=== PATIENT | female | born 1970 | race Caucasian/White ===

== ENCOUNTER 2023-03-22 14:28 | Emergency (ER) | payer BC, SELFPAY ==
[2023-03-22 14:32] VITALS: BP 171/76; PULSE 63; RESP 16; TEMP 36.4; O2SAT 98; BMI 39.2
--- NOTE | 2023-03-22 14:47 | ED.EXTPRO1 ---
Documented by User: BRITTNI Gonzales 03/22/23 14:53 HPI - Extremity Problem General Chief complaint: Extremity Problem, Nontraumatic Stated complaint: SHOULDER PAIN R SIDE Time Seen by Provider: 03/22/23 14:46 Source: patient Mode of arrival: walk-in Limitations: no limitations History of Present Illness HPI Narrative: 52-year-old female presents with right shoulder pain for the past week. Denies injury. She took ibuprofen this morning. Hurts to move around shoulder. Denies swelling, temp or sensation changes Related Data Previous Rx's Medication Instructions Recorded tizanidine 4 mg tablet (Zanaflex) 4 mg PO TID PRN muscle spasticity 03/22/23 5 days #15 tabs Allergies Allergy/AdvReac Type Severity Reaction Status Date / Time No Known Drug Allergies Allergy Verified 03/22/23 14:37 Review of Systems ROS Status of ROS 10 or more systems reviewed and unremarkable except as noted in history and below Exam Narrative Exam Narrative: General: A&Ox3, no distress, talking in full an complete sentences skin: warm, dry, intact head: normocephalic, atraumatic eyes: EOMI nose: nares patent neck: supple, trachea midline respiratory: non-labored extremities: FROM x 4, strength +5/5, tender to right trapezius neuro: A&Ox3 psych: appropriate mood and affect, cooperative Constitutional Vital Signs, click to edit/add: Last Vital Signs Temp 97.5 F L 03/22/23 14:32 Pulse 63 03/22/23 14:32 Resp 16 03/22/23 14:32 BP 171/76 H 03/22/23 14:32 Pulse Ox 98 03/22/23 14:32 O2 Del Method Room Air 03/22/23 14:32 Course Vital Signs Vital signs: Vital Signs Temperature 97.5 F L 03/22/23 14:32 Pulse Rate 63 03/22/23 14:32 Respiratory Rate 16 03/22/23 14:32 Blood Pressure 171/76 H 03/22/23 14:32 Pulse Oximetry 98 03/22/23 14:32 Oxygen Delivery Method Room Air 03/22/23 14:32 Temperature 97.5 F L 03/22/23 14:32 Pulse Rate 63 03/22/23 14:32 Respiratory Rate 16 03/22/23 14:32 Blood Pressure 171/76 H 03/22/23 14:32 Pulse Oximetry 98 03/22/23 14:32 Oxygen Delivery Method Room Air 03/22/23 14:32 MDM - Extremity (Nontraumatic) MDM Narrative Medical decision making narrative: Likely a muscle strain and will be medicated with lidocaine patch and Toradol given a prescription for Zanaflex. F/u with PCP. afebrile, not tachypneic, not tachycardic, tolerating p.o., not hypoxic, non toxic appearing and ambulating at baseline and hemodynamically stable to be d/c. answered all questions. educated on SE of meds. pt in agreement with tx. educated when to return to ER. Discharge Plan Discharge Chief Complaint: Extremity Problem, Nontraumatic Clinical Impression: Strain of right trapezius muscle Qualifiers: Encounter type: initial encounter Qualified Code(s): S46.811A - Strain of other muscles, fascia and tendons at shoulder and upper arm level, right arm, initial encounter Patient Disposition: Home, Self-Care Time of Disposition Decision: 14:49 Condition: Good Mode of Transportation: Private Vehicle Prescriptions / Home Meds: New tizanidine [Zanaflex] 4 mg tablet 4 mg PO TID PRN (Reason: muscle spasticity) 5 Days Qty: 15 0RF Instructions: Muscle Strain (ED) Stand Alone Forms: Work/School Release, Portal Instructions Referrals: SAMINA WEAVER [Primary Care Provider] - 1 week Discharge Date/Time: 03/22/23 15:14 Documented by User: Larry Demarco MD 03/22/23 20:31 HPI - Extremity Problem General Chief complaint: Extremity Problem, Nontraumatic Stated complaint: SHOULDER PAIN R SIDE Time Seen by Provider: 03/22/23 14:46 Related Data Previous Rx's Medication Instructions Recorded tizanidine 4 mg tablet (Zanaflex) 4 mg PO TID PRN muscle spasticity 03/22/23 5 days #15 tabs Allergies Allergy/AdvReac Type Severity Reaction Status Date / Time No Known Drug Allergies Allergy Verified 03/22/23 14:37 Exam Constitutional Vital Signs, click to edit/add: Last Vital Signs Temp 97.5 F L 03/22/23 14:32 Pulse 63 03/22/23 14:32 Resp 16 03/22/23 14:32 BP 171/76 H 03/22/23 14:32 Pulse Ox 98 03/22/23 14:32 O2 Del Method Room Air 03/22/23 14:32 Course Vital Signs Vital signs: Vital Signs Temperature 97.5 F L 03/22/23 14:32 Pulse Rate 63 03/22/23 14:32 Respiratory Rate 16 03/22/23 14:32 Blood Pressure 171/76 H 03/22/23 14:32 Pulse Oximetry 98 03/22/23 14:32 Oxygen Delivery Method Room Air 03/22/23 14:32 Temperature 97.5 F L 03/22/23 14:32 Pulse Rate 63 03/22/23 14:32 Respiratory Rate 16 03/22/23 14:32 Blood Pressure 171/76 H 03/22/23 14:32 Pulse Oximetry 98 03/22/23 14:32 Oxygen Delivery Method Room Air 03/22/23 14:32 MDM - Extremity (Nontraumatic) MDM Narrative Medical decision making narrative: Likely a muscle strain and will be medicated with lidocaine patch and Toradol given a prescription for Zanaflex. F/u with PCP. afebrile, not tachypneic, not tachycardic, tolerating p.o., not hypoxic, non toxic appearing and ambulating at baseline and hemodynamically stable to be d/c. answered all questions. educated on SE of meds. pt in agreement with tx. educated when to return to ER. I, Dr Demarco, have reviewed the above progress note and course of action in the ER; agree with the above. I have personally seen and evaluated this patient, gone over history and physical, and discussed disposition and treatment plan with the patient. Discharge Plan Discharge Chief Complaint: Extremity Problem, Nontraumatic Clinical Impression: Strain of right trapezius muscle Qualifiers: Encounter type: initial encounter Qualified Code(s): S46.811A - Strain of other muscles, fascia and tendons at shoulder and upper arm level, right arm, initial encounter Patient Disposition: Home, Self-Care Time of Disposition Decision: 14:49 Condition: Good Mode of Transportation: Private Vehicle Prescriptions / Home Meds: New tizanidine [Zanaflex] 4 mg tablet 4 mg PO TID PRN (Reason: muscle spasticity) 5 Days Qty: 15 0RF Instructions: Muscle Strain (ED) Stand Alone Forms: Work/School Release, Portal Instructions Referrals: SAMINA WEAVER [Primary Care Provider] - 1 week Discharge Date/Time: 03/22/23 15:14
[2023-03-22] MEDS: LIDOCAINE 5% PATCH 1 PATCH TOPICAL (15:01)
[2023-03-22] MEDS: KETOROLAC TROMETHAMINE 30 MG/ML VIAL 15 MG IM (15:01)
== END 2023-03-22 15:14 | disposition home or self-care (01) ==
PROVIDERS: Emergency Provider Emergency Medicine; PCP Internal Medicine
DX: S46.811A Strain of other muscles, fascia and tendons at shoulder and upper arm level, right arm, initial encounter (principal); X58.XXXA Exposure to other specified factors, initial encounter
CPT/HCPCS: 96372; 99284

== ENCOUNTER 2023-04-01 14:22 | Outpatient (OUT) | payer BC, SELFPAY ==
--- NOTE | 2023-04-01 14:28 | XR_ITS ---
[address] [address] Patient Name: MACHO FARRIS MRN: [id number] date: 1970 Sex: F Assigned Patient Location: [facility] Current Patient Location: [facility] Accession/Order Number: [id number] Exam Date: 04/01/2023 14:30 Report Date: 04/01/2023 15:05 At the request of: SAMINA WEAVER Procedure: XR cervical spine 2-3V EXAM: XR cervical spine 2-3V HISTORY: Neck Pain M54.2 COMPARISON: None. TECHNIQUE: 3 views FINDINGS: Satisfactory alignment. Maintained vertebral body heights and disc spaces. No acute fracture or subluxation. Unremarkable soft tissues. XR/XR cervical spine 2-3V IMPRESSION: Unremarkable exam. Electronically authenticated by: NICOLE SCHAFER Date: 04/01/2023 15:05
== END 2023-04-01 14:23 | disposition home or self-care (01) ==
LOC: RAD 14:23
PROVIDERS: PCP Internal Medicine; Visit Provider Internal Medicine
DX: M54.2 Cervicalgia (principal)
CPT/HCPCS: 72040